=== PATIENT | male | born 1930 | race Caucasian/White ===

== ENCOUNTER → 2016-09-20 | Day surgery (SDC) | payer MEDICARE, MEDICAID ==
[~2016-09-20] VITALS: Ht 180.3 cm; Wt 84.4 kg
[~2016-09-20] MED LIST: AMLODIPINE BESY10 MG PO; ASPIRIN81 M1 PO; AUGMENTIN 875875 MG PO; CIPRO500 MG PO; CIPROFLOXACIN500 M4 PO; CORTISPORIN SUS10 ML OT; CRESTOR5 MG PO; DOXYCYCLINE HY100 M3 PO; GLIPIZIDE5 MG PO; GLYBURIDE5 MG PO; LISINOPRIL20 MG PO; LOPRESSOR50 M1 PO; MACROBID100 M1 PO; METFORMIN1000 MG PO; TRAZODONE150 MG PO; TRAZODONE50 MG PO; VIBRAMYCIN100 MG PO; VICODIN 5-3001 EACH PO; VICTOZA6 MG/ML SC; ZOLOFT50 MG PO
--- NOTE | ~2016-09-20 | O ---
[place], [place] OPERATIVE NOTE NAME: MARY BRAMBILA UNIT #: [id number] ROOM: DOCTOR: TARAS ZUÑIGA MD BIRTHDATE: [birth year] DOS: 09/20/2016 PREOPERATIVE DIAGNOSIS: Cataract, left eye. POSTOPERATIVE DIAGNOSIS: Cataract, left eye. OPERATION: Extracapsular cataract extraction by phacoemulsification with posterior chamber intraocular lens implantation, left eye. ANESTHESIA: Monitored standby. OPERATIVE FINDINGS AND PROCEDURE: 2% Xylocaine topical anesthetic gel was applied to the eye in the preop area. The patient was taken to the operating room and prepped and draped in the standard fashion for sterile intraocular surgery. A time out procedure was performed verifying correct patient, correct site and corrects lens with Blanca Zuñiga M.D. The operating microscope was swung into position and the lid speculum was inserted. Using a Michelle paracentesis blade, a paracentesis was made through clear cornea. Viscoelastic was used to fill the anterior chamber. Using a metal keratome a 2.4 mm self-sealing clear corneal cataract incision was made temporally at the limbus. A Mylugen ring was inserted and the scrolls engaged to the pupillary margin to enlarge and stabilize the miotic pupil. Using a pre-bent 25 gauge cystotome needle, a standard continuous curvilinear capsulorrhexis was performed. The anterior capsule was removed with forceps. The lens nucleus was hydrodissected and phacoemulsified in the posterior chamber. Cortical material was removed with the irrigation aspiration hand piece and the posterior capsule was then polished with a curet under irrigation. The posterior chamber and capsular bag were filled with viscoelastic. A posterior chamber intraocular lens manufactured by: [employer], Model #[id number], and 23.5 diopters in strength were then inserted into the posterior chamber and within the capsular bag using the lens cartridge and injector system and the position adjusted with a cyclodialysis spatula. The Mylugen ring was then disengaged from the pupil and removed from the anterior chamber. Viscoelastic was removed using the irrigation aspiration handpiece. The anterior chamber was filled with balanced salt solution through the paracentesis. Both the paracentesis site and cataract incisions were hydrated with BSS and verified to be water-tight and self-sealing. Cefuroxime 1 mg/1 mL was injected into the anterior chamber through the paracentesis site. The incision checked to be water-tight using a Weck-Bebe sponge. The integrity of the cataract wound and ocular tension were checked. Lid speculum and drapes were removed. The patient was transferred from the operating room to the recovery room in satisfactory condition. [place], [place] OPERATIVE NOTE NAME: MARY BRAMBILA Amaury UNIT #: [id number] ROOM: DOCTOR: TARAS ZUÑIGA MD BIRTHDATE: [birth year] TARAS ZUÑIGA MD CM:OPRECORD:OPERATIVE NOTE [id number] TARAS ZUÑIGA MD 09/20/16 1252 interface
[2016-09-20 08:40] VITALS: BP 165/84
[2016-09-20 09:34] VITALS: BP 168/86
[2016-09-20 09:49] VITALS: BP 140/83
[2016-09-20 10:04] VITALS: BP 142/86
== END | disposition home or self-care (01) ==
LOC: SDC 09-13 12:30
DX: H26.9 Unspecified cataract (principal); H57.03 Miosis; E11.9 Type 2 diabetes mellitus without complications; I25.2 Old myocardial infarction; I10 Essential (primary) hypertension; F41.9 Anxiety disorder, unspecified; F32.9 Major depressive disorder, single episode, unspecified; Z85.118 Personal history of other malignant neoplasm of bronchus and lung

== ENCOUNTER → 2016-10-25 | Day surgery (SDC) | payer MEDICARE, MEDICAID ==
[~2016-10-25] VITALS: Ht 180.3 cm; Wt 83.9 kg
--- NOTE | ~2016-10-25 | O ---
[place], [place] OPERATIVE NOTE NAME: MARY BRAMBILA UNIT #: [id number] ROOM: DOCTOR: TARAS ZUÑIGA MD BIRTHDATE: [birth year] DOS: 10/25/2016 PREOPERATIVE DIAGNOSIS: Cataract, right eye. POSTOPERATIVE DIAGNOSIS: Cataract, right eye. OPERATION: Extracapsular cataract extraction by phacoemulsification with posterior chamber intraocular lens implantation, right eye. ANESTHESIA: Monitored standby. OPERATIVE FINDINGS AND PROCEDURE: 2% Xylocaine topical anesthetic gel was applied to the eye in the preop area. The patient was taken to the operating room and prepped and draped in the standard fashion for sterile intraocular surgery. A time out procedure was performed verifying correct patient, correct site and corrects lens with Blanca Zuñiga M.D. The operating microscope was swung into position and the lid speculum was inserted. Using a Michelle paracentesis blade, a paracentesis was made through clear cornea. Viscoelastic was used to fill the anterior chamber. Using a metal keratome a 2.4 mm self-sealing clear corneal cataract incision was made temporally at the limbus. Using a pre-bent 25 gauge cystotome needle, a standard continuous curvilinear capsulorrhexis was performed. The anterior capsule was removed with forceps. The lens nucleus was hydrodissected and phacoemulsified in the posterior chamber. Cortical material was removed with the irrigation aspiration hand piece and the posterior capsule was then polished with a curet under irrigation. The posterior chamber and capsular bag were filled with viscoelastic. A posterior chamber intraocular lens manufactured by: [employer], Model #[id number], and 24.0 diopters in strength were then inserted into the posterior chamber and within the capsular bag using the lens cartridge and injector system. Viscoelastic was removed using the irrigation aspiration handpiece. The anterior chamber was filled with balanced salt solution through the paracentesis. Both the paracentesis site and cataract incisions were hydrated with BSS and verified to be water-tight and self-sealing. Cefuroxime 1 mg/0.1 mL was injected into the anterior chamber through the paracentesis site. The incision checked to be water-tight using a Weck-Bebe sponge. The integrity of the cataract wound and ocular tension were checked. Lid speculum and drapes were removed. The patient was transferred from the operating room to the recovery room in satisfactory condition. [place], [place] OPERATIVE NOTE NAME: MARY BRAMBILA Amaury UNIT #: [id number] ROOM: DOCTOR: TARAS ZUÑIGA MD BIRTHDATE: [birth year] TARAS ZUÑIGA MD CM:OPRECORD:OPERATIVE NOTE TARAS ZUÑIGA MD 10/25/1639 interface
[2016-10-25 08:41] VITALS: BP 131/70
[2016-10-25 08:56] VITALS: BP 139/76
[2016-10-25 09:10] VITALS: BP 134/73
== END | disposition home or self-care (01) ==
LOC: SDC 10-18 08:00
DX: H26.9 Unspecified cataract (principal); I25.2 Old myocardial infarction; F41.9 Anxiety disorder, unspecified; F32.9 Major depressive disorder, single episode, unspecified; G47.00 Insomnia, unspecified; Z85.828 Personal history of other malignant neoplasm of skin; Z85.118 Personal history of other malignant neoplasm of bronchus and lung; E11.9 Type 2 diabetes mellitus without complications; I10 Essential (primary) hypertension; E78.5 Hyperlipidemia, unspecified; Z87.01 Personal history of pneumonia (recurrent); Z86.14 Personal history of Methicillin resistant Staphylococcus aureus infection; Z98.890 Other specified postprocedural states; Z87.891 Personal history of nicotine dependence